=== PATIENT | male | born 1950 | race African-American/Black ===

== ENCOUNTER 2022-12-15 17:57 | Inpatient (IN) | payer OTHER ==
[~2022-12-15] VITALS: Ht 177.8 cm; Wt 90.0 kg
[2022-12-15 19:03] VITALS: BP 130/77
[2022-12-15] MEDS ORDERED: FARXIGA10 M1 PO (19:11)
[2022-12-15] MEDS ORDERED: ATORVASTATIN CA40 M1 PO (19:11)
[2022-12-15] MEDS ORDERED: ALDACTONE25 MG PO (19:11)
[2022-12-15] MEDS ORDERED: AMIODARONE HYD200 MG PO (19:12)
[2022-12-15] MEDS ORDERED: Imdur SA60 MG PO (19:13)
[2022-12-15] MEDS ORDERED: FLUTICASONE-SAL12 GM INH (19:13)
[2022-12-15] MEDS ORDERED: METOPROLOL SUCC50 M1 PO (19:13)
[2022-12-15] MEDS ORDERED: OMEPRAZOLE MAGN20 MG PO (19:14)
[2022-12-15] MEDS ORDERED: HYDRALAZINE HC100 MG PO (19:14)
[2022-12-15] MEDS ORDERED: TOPIRAMATE25 M3 PO (19:14)
[2022-12-15] MEDS ORDERED: DOCUSATE SOD100 MG PO (19:15)
[2022-12-15] MEDS ORDERED: XARE20MG PO (19:15)
[2022-12-15] MEDS ORDERED: B COMPLEX1 EACH PO (19:16)
[2022-12-15] MEDS ORDERED: NICODERM CQ1 EAC1 TD (19:17)
[2022-12-15] MEDS ORDERED: PROVENTIL HFA6.7 GM PO (19:18)
[2022-12-15] MEDS ORDERED: ADV 100/50 PO (19:18)
[2022-12-15 19:28] LABS: BASO % 0.6 % (0.0-1.0); EOS % 0.6 % (1.0-4.0); HEMATOCRIT 38.4 % (42.0-52.0); LYMPH # 1.2 10*3/uL (1.3-4.4); LYMPH % 24.7 % (27.0-41.0); MEAN CELL VOLUME 92.1 fl (80.0-94.0); MEAN CORPUSCULAR HGB 30.5 pg (27.0-31.0); MEAN CORPUSCULAR HGB CONC 33.1 g/dl (33.0-37.0); MEAN PLATELET VOLUME 8.8 fl (9.6-12.3); MONO # 0.4 10*3/uL (0.1-1.0); MONO % 8.6 % (3.0-9.0); NEUT # 3.1 10*3/uL (2.3-7.9); NEUT % 65.3 % (47.0-73.0); PLATELET COUNT AUTOMATED 266 10*3/uL (130-400); RED BLOOD COUNT 4.17 10*6/uL (4.50-5.90); RED CELL DISTRI WIDTH 14.2 % (0-14.5); WHITE BLOOD COUNT 4.7 10*3/uL (4.8-10.8)
[2022-12-15 19:41] LABS: ACT PARTIAL THROMBO TIME 29.1 SECONDS (20.0-32.1)
[2022-12-15 19:49] LABS: ALKALINE PHOSPHATASE 74 U/L (46-116); BUN 20 mg/dl (9-23); CHLORIDE 105 mmol/L (98-107); CPK 214 U/L (34-171); ETHYL ALCOHOL 42.1 mg/dl (<3); LIPASE 41 U/L (12-53); POTASSIUM 3.9 mmol/L (3.4-5.1); SGPT/ALT 13 U/L (10-49); TOTAL PROTEIN 7.4 gm/dL (6.0-8.0)
[2022-12-15 19:53] LABS: BILIRUBIN Negative (Negative); BLOOD Negative (Negative); CLARITY Clear (Clear); COLOR Yellow (Yellow); GLUCOSE 3+ (Negative); KETONE Negative (Negative); LEUKO ESTERASE Negative (Negative); NITRITE Negative (Negative); SPECIFIC GRAVITY 1.015 (1.001-1.030)
[2022-12-15 20:00] LABS: URINE AMPHETAMINES Negative (1000ng/ml); URINE BARBITURATES Negative (200ng/ml); URINE BENZODIAZEPINES Negative (200ng/ml); URINE CANNABINOIDS (THC) Positive (50ng/ml); URINE COCAINE Positive (300ng/ml); URINE METHADONE Negative (300ng/ml); URINE OPIATES Negative (300ng/ml); URINE PHENCYCLIDINE Negative (25ng/ml)
[2022-12-15 20:06] LABS: BACTERIA TRACE; RBC 0-2 rbc/hpf (0-2); WBC 0-2 wbc/hpf (0-5)
[2022-12-15 22:41] VITALS: BP 168/79
[2022-12-16] VITALS: BP 184/74
[2022-12-16 03:17] VITALS: BP 152/67
[2022-12-16 05:11] LABS: POTASSIUM 4.4 mmol/L (3.4-5.1); TOTAL PROTEIN 6.7 gm/dL (6.0-8.0)
[2022-12-16 06:16] LABS: BASO % 0.5 % (0.0-1.0); EOS # 0.1 10*3/uL (0.0-0.4); EOS % 1.8 % (1.0-4.0); LYMPH # 1.3 10*3/uL (1.3-4.4); MEAN CELL VOLUME 93.4 fl (80.0-94.0); MEAN CORPUSCULAR HGB 30.2 pg (27.0-31.0); MEAN CORPUSCULAR HGB CONC 32.4 g/dl (33.0-37.0); MEAN PLATELET VOLUME 9.2 fl (9.6-12.3); MONO # 0.5 10*3/uL (0.1-1.0); MONO % 12.6 % (3.0-9.0); NEUT % 51.8 % (47.0-73.0); PLATELET COUNT AUTOMATED 266 10*3/uL (130-400); RED BLOOD COUNT 4.07 10*6/uL (4.50-5.90); RED CELL DISTRI WIDTH 14.6 % (0-14.5); WHITE BLOOD COUNT 3.9 10*3/uL (4.8-10.8)
[2022-12-16 06:31] LABS: VITAMIN D, 25-HYDROXY 26.5 ng/mL (30-100)
[2022-12-16 08:00] VITALS: BP 130/55
[2022-12-16 12:00] VITALS: BP 151/71
[2022-12-16 16:00] VITALS: BP 145/70
[2022-12-16 20:00] VITALS: BP 155/56
[2022-12-17] VITALS: BP 148/61
[2022-12-17 05:56] LABS: POTASSIUM 4.6 mmol/L (3.4-5.1)
[2022-12-17 06:10] LABS: BASO % 0.7 % (0.0-1.0); EOS # 0.1 10*3/uL (0.0-0.4); EOS % 2.1 % (1.0-4.0); HEMATOCRIT 39.6 % (42.0-52.0); LYMPH # 1.2 10*3/uL (1.3-4.4); LYMPH % 26.7 % (27.0-41.0); MEAN CELL VOLUME 96.4 fl (80.0-94.0); MEAN CORPUSCULAR HGB 30.9 pg (27.0-31.0); MEAN CORPUSCULAR HGB CONC 32.1 g/dl (33.0-37.0); MEAN PLATELET VOLUME 9.5 fl (9.6-12.3); MONO # 0.6 10*3/uL (0.1-1.0); MONO % 13.4 % (3.0-9.0); NEUT # 2.5 10*3/uL (2.3-7.9); NEUT % 56.9 % (47.0-73.0); PLATELET COUNT AUTOMATED 253 10*3/uL (130-400); RED BLOOD COUNT 4.11 10*6/uL (4.50-5.90); RED CELL DISTRI WIDTH 14.7 % (0-14.5); WHITE BLOOD COUNT 4.4 10*3/uL (4.8-10.8)
[2022-12-17 08:00] VITALS: BP 160/68
[2022-12-17 12:00] VITALS: BP 170/71
[2022-12-17 16:00] VITALS: BP 163/71
[2022-12-17 20:00] VITALS: BP 174/78
[2022-12-18] VITALS: BP 171/93
[2022-12-18 06:19] LABS: BASO % 0.5 % (0.0-1.0); EOS # 0.1 10*3/uL (0.0-0.4); EOS % 1.4 % (1.0-4.0); HEMATOCRIT 40.7 % (42.0-52.0); LYMPH # 1.6 10*3/uL (1.3-4.4); LYMPH % 29.1 % (27.0-41.0); MEAN CELL VOLUME 93.6 fl (80.0-94.0); MEAN CORPUSCULAR HGB 30.1 pg (27.0-31.0); MEAN CORPUSCULAR HGB CONC 32.2 g/dl (33.0-37.0); MEAN PLATELET VOLUME 9.2 fl (9.6-12.3); MONO # 0.6 10*3/uL (0.1-1.0); MONO % 10.6 % (3.0-9.0); NEUT # 3.2 10*3/uL (2.3-7.9); NEUT % 57.9 % (47.0-73.0); PLATELET COUNT AUTOMATED 255 10*3/uL (130-400); RED BLOOD COUNT 4.35 10*6/uL (4.50-5.90); RED CELL DISTRI WIDTH 14.4 % (0-14.5); WHITE BLOOD COUNT 5.5 10*3/uL (4.8-10.8)
[2022-12-18 06:53] LABS: POTASSIUM 4.3 mmol/L (3.4-5.1)
[2022-12-18 08:00] VITALS: BP 178/81
[2022-12-18 12:00] VITALS: BP 169/72
[2022-12-18 16:00] VITALS: BP 159/71
[2022-12-18 20:00] VITALS: BP 160/68
[2022-12-19] VITALS: BP 158/62
== END 2022-12-19 09:15 | disposition home or self-care (01) | DRG 896 ==
LOC: ED 17:57 → 4E 21:19 → EDHOLD 21:19 → 4E 22:55
PROVIDERS: Internal Medicine; Student in an Organized Health Care Education/Training Program; ADMIT Internal Medicine; ATTEND Internal Medicine
DX: F10.930 Alcohol use, unspecified with withdrawal, uncomplicated (principal); N17.0 Acute kidney failure with tubular necrosis; F14.10 Cocaine abuse, uncomplicated; I50.9 Heart failure, unspecified; I11.0 Hypertensive heart disease with heart failure; R73.9 Hyperglycemia, unspecified; D64.9 Anemia, unspecified; D72.819 Decreased white blood cell count, unspecified; E83.51 Hypocalcemia; F12.90 Cannabis use, unspecified, uncomplicated; Z88.8 Allergy status to other drugs, medicaments and biological substances